=== PATIENT | male | born 2000 | race Caucasian/White ===

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

== ENCOUNTER 2020-01-27 05:37 | Outpatient (CLI) | payer MEDICAID | END 2020-01-27 05:38 | disposition short-term general hospital (02) | LOC: EMS 05:37 | PROVIDERS: ATTEND Surgery | DX: R07.89 Other chest pain (principal); V43.52XA Car driver injured in collision with other type car in traffic accident, initial encounter; Y92.480 Sidewalk as the place of occurrence of the external cause | CPT/HCPCS: A0425; A0429; A0999 ==